=== PATIENT | female | born 1935 | race Caucasian/White ===

== ENCOUNTER 2016-07-25 03:08 | Emergency (ER) | payer OTHER ==
[~2016-07-25] VITALS: Ht 149.9 cm; Wt 52.0 kg
[~2016-07-25 03:08] MED LIST: ACCUPRIL20 MG PO; HYDROCHLOROTHIA25 MG PO; METOPROLOL SUCC50 MG PO; TYLENOL WITH C1 EACH PO
[2016-07-25 05:53] VITALS: BP 141/85
== END 2016-07-25 05:55 | disposition home or self-care (01) ==
LOC: EME → EDBD 03:08 → EME 03:08
DX: S09.90XA Unspecified injury of head, initial encounter (principal); S70.01XA Contusion of right hip, initial encounter; S00.81XA Abrasion of other part of head, initial encounter; W19.XXXA Unspecified fall, initial encounter; Y92.009 Unspecified place in unspecified non-institutional (private) residence as the place of occurrence of the external cause; Y93.01 Activity, walking, marching and hiking; I10 Essential (primary) hypertension; Z86.73 Personal history of transient ischemic attack (TIA), and cerebral infarction without residual deficits; Z87.891 Personal history of nicotine dependence
CPT/HCPCS: 70450; 70486; 73502; 99281; 99284

== ENCOUNTER 2017-03-30 07:40 | Emergency (ER) | payer OTHER ==
[~2017-03-30] VITALS: Ht 149.9 cm; Wt 49.8 kg
[2017-03-30 08:34] LABS: HEMATOCRIT 41.4 % (36.0-46.0); HEMOGLOBIN 13.5 G/DL (11.9-15.5); MCH 27.8 PG (29.0-34.0); MCHC 32.6 G/DL (30.0-36.0); MCV 85.4 FL (83-99); PLATELET COUNT 203 K/uL (156-360); RBC DIS.WIDTH-CV 13.9 % (11.8-14.6); RBC DIS.WIDTH-SD 43.5 % (39-53); RED BLOOD COUNT 4.85 M/uL (3.80-5.20); WHITE BLOOD COUNT 7.5 K/uL (4.1-10.2)
[2017-03-30 08:41] LABS: ALBUMIN 4.2 g/dL (3.2-4.8)
[2017-03-30 08:42] LABS: CHLORIDE 104 mEq/L (99-109); POTASSIUM 4.5 mEq/L (3.7-5.4); SODIUM 137 mEq/L (136-147)
[2017-03-30 08:44] LABS: GLUCOSE 101 mg/dL (70-99); TOTAL PROTEIN 7.5 g/dL (6.4-8.3)
[2017-03-30 08:46] LABS: TOTAL BILIRUBIN 0.7 mg/dL (0.0-1.0)
[2017-03-30 08:47] LABS: ALKALINE PHOSPHATASE 116 IU/L (3-129)
[2017-03-30 08:48] LABS: GFR ESTIMATE (CALCULATED) 57 mL/min/
[2017-03-30 08:49] LABS: AST (GOT) 29 IU/L (2-34); UREA NITROGEN (BUN) 19 mg/dL (9-23)
[2017-03-30 08:50] LABS: ALT (GPT) 23 IU/L (3-49)
[2017-03-30 08:51] LABS: LIPASE 38 U/L (1.0-51.0)
[2017-03-30 08:51] LABS: APPEARANCE CLEAR ((CLEAR)); BILIRUBIN NEGATIVE; BLOOD SMALL; COLOR STRAW ((YELLOW)); GLUCOSE (STRIP) NEGATIVE; KETONES NEGATIVE; LEUKOCYTES TRACE; NITRITE NEGATIVE; PROTEIN (STRIP) NEGATIVE; SPECIFIC GRAVITY 1.004 (1.000-1.030); UROBILINOGEN 0.2 MG/DL (0.2-1.0)
[2017-03-30 08:56] LABS: BACTERIA 3+ /HPF; EPITHELIAL CELLS RARE /HPF; MUCUS TRACE /LPF; RED BLOOD CELLS 0-5 /HPF (0-5); WHITE BLOOD CELLS 0-5 /HPF (0-5)
[2017-03-30] MEDS ORDERED: NORCO 5/3251 TABLET PO (10:17)
[2017-03-30] MEDS ORDERED: STOOL SOFTENER240 MG PO (10:17)
[2017-03-30 10:58] VITALS: BP 131/74
== END 2017-03-30 11:13 | disposition home or self-care (01) ==
LOC: EME 07:40
PROVIDERS: Nurse Practitioner Family
DX: S22.41XA Multiple fractures of ribs, right side, initial encounter for closed fracture (principal); I71.4 Abdominal aortic aneurysm, without rupture; M85.80 Other specified disorders of bone density and structure, unspecified site; K44.9 Diaphragmatic hernia without obstruction or gangrene; I25.10 Atherosclerotic heart disease of native coronary artery without angina pectoris; I10 Essential (primary) hypertension; W01.198A Fall on same level from slipping, tripping and stumbling with subsequent striking against other object, initial encounter; Z79.82 Long term (current) use of aspirin; Z87.891 Personal history of nicotine dependence; Z86.73 Personal history of transient ischemic attack (TIA), and cerebral infarction without residual deficits
CPT/HCPCS: 74177; 80053; 81003; 83690; 85027; 87077; 87086; 87186; 99281; 99285; J7030

== ENCOUNTER 2017-06-20 07:11 | Emergency (ER) | payer OTHER ==
[~2017-06-20] VITALS: Ht 152.4 cm; Wt 49.7 kg
[~2017-06-20 07:11] MED LIST changes: +NORCO 5/3251 TABLET PO; +STOOL SOFTENER240 MG PO
[2017-06-20 09:34] VITALS: BP 138/79
== END 2017-06-20 09:25 | disposition home or self-care (01) ==
LOC: EME 07:11
PROC: 0HQ0XZZ Repair Scalp Skin, External Approach (ICD-10-PCS; principal; 2017-06-20)
DX: S01.01XA Laceration without foreign body of scalp, initial encounter (principal); W18.30XA Fall on same level, unspecified, initial encounter; Y92.000 Kitchen of unspecified non-institutional (private) residence as the place of occurrence of the external cause; I49.8 Other specified cardiac arrhythmias; R94.31 Abnormal electrocardiogram [ECG] [EKG]; I10 Essential (primary) hypertension; Z87.891 Personal history of nicotine dependence; Z91.81 History of falling; Z86.73 Personal history of transient ischemic attack (TIA), and cerebral infarction without residual deficits
CPT/HCPCS: 70450; 72125; 93005; 99281; 99284

== ENCOUNTER 2017-09-22 05:29 | Emergency (ER) | payer OTHER ==
[~2017-09-22] VITALS: Ht 121.9 cm; Wt 46.0 kg
[2017-09-22 06:58] LABS: HEMATOCRIT 35.6 % (36.0-46.0); HEMOGLOBIN 11.2 G/DL (11.9-15.5); MCH 25.2 PG (29.0-34.0); MCHC 31.5 G/DL (30.0-36.0); PLATELET COUNT 370 K/uL (156-360); RBC DIS.WIDTH-CV 14.4 % (11.8-14.6); RBC DIS.WIDTH-SD 42.2 % (39-53); RED BLOOD COUNT 4.45 M/uL (3.80-5.20); WHITE BLOOD COUNT 9.9 K/uL (4.1-10.2)
[2017-09-22 07:40] LABS: CHLORIDE 98 MEQ/L (99-109); CREATININE 0.9 MG/DL (0.6-1.3); GFR ESTIMATE (CALCULATED) > 59 mL/min/; GLUCOSE 98 mg/dL (70-99); POTASSIUM 3.9 MEQ/L (3.7-5.4); SODIUM 138 MEQ/L (136-147); UREA NITROGEN (BUN) 17 mg/dL (9-23)
[2017-09-22 07:53] LABS: APPEARANCE SL.HAZY ((CLEAR)); BILIRUBIN NEGATIVE; BLOOD SMALL; COLOR YELLOW ((YELLOW)); GLUCOSE (STRIP) NEGATIVE; KETONES NEGATIVE; LEUKOCYTES MODERATE; NITRITE NEGATIVE; PROTEIN (STRIP) NEGATIVE; UROBILINOGEN 0.2 MG/DL (0.2-1.0)
[2017-09-22 08:16] LABS: BACTERIA 2+ /HPF; EPITHELIAL CELLS RARE /HPF; MUCUS TRACE /LPF; RED BLOOD CELLS 0-5 /HPF (0-5); UCUL ADDED? YES; WHITE BLOOD CELLS 40-50 /HPF (0-5)
[2017-09-22] MEDS ORDERED: CIPRO500 MG PO (09:59)
[2017-09-22 10:30] VITALS: BP 106/67
== END 2017-09-22 10:31 | disposition home or self-care (01) ==
LOC: EME → EDBD 05:29 → EME 10:31
PROVIDERS: Emergency Medicine
DX: S00.03XA Contusion of scalp, initial encounter (principal); N39.0 Urinary tract infection, site not specified; M54.2 Cervicalgia; W18.30XA Fall on same level, unspecified, initial encounter; I10 Essential (primary) hypertension; Z86.73 Personal history of transient ischemic attack (TIA), and cerebral infarction without residual deficits; Z87.891 Personal history of nicotine dependence
CPT/HCPCS: 70450; 72125; 80048; 81003; 85027; 87077; 87086; 87186; 99281; 99285; G8978 GP CM; G8979 CJ; G8980 GP CM; G8987 CK; G8987 GO CL; G8988 GO CK; G8989 GO CL

== ENCOUNTER 2017-10-04 19:45 | Inpatient (IN) | payer OTHER ==
[~2017-10-04] VITALS: Ht 149.9 cm; Wt 49.0 kg
[~2017-10-04 19:45] MED LIST changes: +CIPRO500 MG PO
[2017-10-04 20:19] LABS: APPEARANCE CLEAR ((CLEAR)); BILIRUBIN NEGATIVE; BLOOD MODERATE; COLOR YELLOW ((YELLOW)); GLUCOSE (STRIP) NEGATIVE; KETONES NEGATIVE; LEUKOCYTES NEGATIVE; NITRITE NEGATIVE; PROTEIN (STRIP) NEGATIVE; SPECIFIC GRAVITY 1.008 (1.000-1.030); UROBILINOGEN 0.2 MG/DL (0.2-1.0)
[2017-10-04 20:42] LABS: BACTERIA RARE /HPF; EPITHELIAL CELLS RARE /HPF; MUCUS TRACE /LPF; UCUL ADDED? NO; WHITE BLOOD CELLS 0-5 /HPF (0-5)
[2017-10-04 20:48] LABS: BASOPHIL (%) 0.3 % (0-1); EOSINOPHIL (%) 1.4 % (0-5); EOSINOPHIL COUNT 0.2 K/uL (0-0.3); HEMATOCRIT 33.3 % (36.0-46.0); HEMOGLOBIN 10.7 G/DL (11.9-15.5); IMMATURE GRANULOCYTE (%) 0.5 % (0.0-0.7); LYMPHOCYTE (%) 8.3 % (15-42); LYMPHOCYTE COUNT 1.1 K/uL (1.0-2.8); MCHC 32.1 G/DL (30.0-36.0); MCV 77.8 FL (83-99); MONOCYTE (%) 8.7 % (3-12); MONOCYTE COUNT 1.2 K/uL (0-0.8); NEUTROPHIL (%) 80.8 % (45-76); NEUTROPHIL COUNT 10.7 K/uL (1.8-6.4); PLATELET COUNT 419 K/uL (156-360); RBC DIS.WIDTH-CV 14.6 % (11.8-14.6); RED BLOOD COUNT 4.28 M/uL (3.80-5.20); WHITE BLOOD COUNT 13.2 K/uL (4.1-10.2)
[2017-10-04 20:59] LABS: ALBUMIN 2.8 g/dL (3.2-4.8); CHLORIDE 98 mEq/L (99-109); POTASSIUM 3.1 mEq/L (3.7-5.4); SODIUM 135 mEq/L (136-147)
[2017-10-04 21:01] LABS: GLUCOSE 100 mg/dL (70-99); TOTAL PROTEIN 6.2 g/dL (6.4-8.3)
[2017-10-04 21:03] LABS: TOTAL BILIRUBIN 0.7 mg/dL (0.0-1.0)
[2017-10-04 21:04] LABS: ALKALINE PHOSPHATASE 76 IU/L (3-129)
[2017-10-04 21:05] LABS: CREATININE 1.4 mg/dL (0.6-1.3); GFR ESTIMATE (CALCULATED) 38 mL/min/
[2017-10-04 21:06] LABS: AST (GOT) 15 IU/L (2-34); UREA NITROGEN (BUN) 17 mg/dL (9-23)
[2017-10-04 21:08] LABS: ALT (GPT) 7 IU/L (3-49)
[2017-10-04] MEDS ORDERED: QUINAPRIL HCL10 MG PO (22:04)
[2017-10-04] MEDS ORDERED: QUINAPRIL HCL20 MG PO (22:04)
[2017-10-04] MEDS ORDERED: CIPROFLOXACIN500 M1 PO (22:05)
[2017-10-04] MEDS ORDERED: CYANOCOBAL1000 MCG/2 IM (22:05)
[2017-10-04] MEDS ORDERED: LO-DOSE ASPIRIN81 M2 PO (22:07)
[2017-10-04 23:39] LABS: TROP-I INTERPRETATION NEGATIVE; TROPONIN-I 0.04 ng/mL (0.0-0.30)
[2017-10-05] VITALS (7 sets, daily range): BP systolic 101–141; BP diastolic 56–64
[2017-10-05 04:11] LABS: TRANSFERRIN (TIBC) 184.3 mg/dL (215-380)
[2017-10-05 04:12] LABS: IRON < 10 MCG/DL (35-150); TRANSFERRIN SATUR. 5 % (20-55)
[2017-10-05 05:19] LABS: BASOPHIL (%) 0.3 % (0-1); EOSINOPHIL (%) 1.2 % (0-5); EOSINOPHIL COUNT 0.2 K/uL (0-0.3); HEMATOCRIT 29.5 % (36.0-46.0); HEMOGLOBIN 9.2 G/DL (11.9-15.5); IMMATURE GRANULOCYTE (%) 0.4 % (0.0-0.7); MCH 24.7 PG (29.0-34.0); MCHC 31.2 G/DL (30.0-36.0); MCV 79.3 FL (83-99); MONOCYTE (%) 9.5 % (3-12); MONOCYTE COUNT 1.2 K/uL (0-0.8); NEUTROPHIL (%) 80.6 % (45-76); NEUTROPHIL COUNT 10.4 K/uL (1.8-6.4); PLATELET COUNT 334 K/uL (156-360); RBC DIS.WIDTH-CV 14.6 % (11.8-14.6); RBC DIS.WIDTH-SD 42.6 % (39-53); RED BLOOD COUNT 3.72 M/uL (3.80-5.20); WHITE BLOOD COUNT 12.9 K/uL (4.1-10.2)
[2017-10-05 06:05] LABS: CHLORIDE 106 MEQ/L (99-109); CREATININE 1.3 MG/DL (0.6-1.3); GFR ESTIMATE (CALCULATED) 42 mL/min/; GLUCOSE 81 mg/dL (70-99); SODIUM 138 MEQ/L (136-147); UREA NITROGEN (BUN) 15 mg/dL (9-23)
[2017-10-05 06:09] LABS: POTASSIUM 3.8 MEQ/L (3.7-5.4)
[2017-10-05 07:58] LABS: FERRITIN 94 NG/ML (10-291)
[2017-10-05 08:03] LABS: FOLIC ACID (FOLATE) 16.3 NG/ML (5.0-22.0)
[2017-10-06 03:32] VITALS: BP 110/55
[2017-10-06 05:23] LABS: BASOPHIL (%) 0.4 % (0-1); EOSINOPHIL (%) 4.2 % (0-5); EOSINOPHIL COUNT 0.5 K/uL (0-0.3); HEMATOCRIT 27.8 % (36.0-46.0); HEMOGLOBIN 8.6 G/DL (11.9-15.5); IMMATURE GRANULOCYTE (%) 0.4 % (0.0-0.7); LYMPHOCYTE (%) 7.9 % (15-42); LYMPHOCYTE COUNT 0.8 K/uL (1.0-2.8); MCH 24.6 PG (29.0-34.0); MCHC 30.9 G/DL (30.0-36.0); MCV 79.7 FL (83-99); MONOCYTE (%) 9.5 % (3-12); NEUTROPHIL (%) 77.6 % (45-76); NEUTROPHIL COUNT 8.3 K/uL (1.8-6.4); NRBC (%) 0.4 /100 WBC (0-0); PLATELET COUNT 335 K/uL (156-360); RBC DIS.WIDTH-CV 14.9 % (11.8-14.6); RBC DIS.WIDTH-SD 43.8 % (39-53); RED BLOOD COUNT 3.49 M/uL (3.80-5.20); WHITE BLOOD COUNT 10.6 K/uL (4.1-10.2)
[2017-10-06 05:44] LABS: CHLORIDE 107 MEQ/L (99-109); CREATININE 1.6 MG/DL (0.6-1.3); GFR ESTIMATE (CALCULATED) 33 mL/min/; GLUCOSE 90 mg/dL (70-99); POTASSIUM 3.7 MEQ/L (3.7-5.4); SODIUM 140 MEQ/L (136-147); UREA NITROGEN (BUN) 16 mg/dL (9-23)
[2017-10-06 08:32] VITALS: BP 121/79
[2017-10-06 09:12] LABS: STOOL OCCULT BLD 1ST SPECIMEN POSITIVE
[2017-10-06 12:04] VITALS: BP 116/65
[2017-10-06 16:11] VITALS: BP 133/70
[2017-10-06 18:31] VITALS: BP 156/72
[2017-10-07 00:28] VITALS: BP 127/75
[2017-10-07 04:05] VITALS: BP 120/68
[2017-10-07 07:20] VITALS: BP 168/80
[2017-10-07] MEDS ORDERED: KEFLEX500 MG PO (10:35)
[2017-10-07] MEDS ORDERED: NORVASC5 MG PO (10:36)
[2017-10-07] MEDS ORDERED: LIPITOR20 MG PO (10:38)
[2017-10-07 12:00] VITALS: BP 152/70
== END 2017-10-07 15:19 | DRG 682 ==
LOC: EME → EDBD 19:45 → 4EAST 22:34 → EDOF 22:34 → ENRESERV 22:38 → 4EAST 23:59 → ENRESERV 10-06 16:38 → 2EAST 10-06 18:22 → ENPENDDIS 10-07 15:00 → 2EAST 10-07 15:19
PROVIDERS: Emergency Medicine; Internal Medicine
DX: N17.9 Acute kidney failure, unspecified (principal); G93.41 Metabolic encephalopathy; N39.0 Urinary tract infection, site not specified; I95.9 Hypotension, unspecified; D64.9 Anemia, unspecified; D51.9 Vitamin B12 deficiency anemia, unspecified; E87.6 Hypokalemia; E86.0 Dehydration; E78.5 Hyperlipidemia, unspecified; E87.8 Other disorders of electrolyte and fluid balance, not elsewhere classified; E87.1 Hypo-osmolality and hyponatremia; I69.351 Hemiplegia and hemiparesis following cerebral infarction affecting right dominant side; I10 Essential (primary) hypertension; B35.6 Tinea cruris; R19.5 Other fecal abnormalities; R29.6 Repeated falls
CPT/HCPCS: 70450; 71045; 71250; 74176; 80048; 80053; 80202; 81003; 82272; 82607; 82728; 82746; 83540; 83605; 84145 90; 84466; 84484; 85025; 87040; 87086; 97530 GP; 99281; 99285; J0696; J1644; J2543; J3370; J7030; J7050